=== PATIENT | female | born 1955 | race Caucasian/White ===

== ENCOUNTER → 2024-03-19 | Outpatient (CLI) | payer MEDICARE ==
[2024-03-19 18:55] LABS: Creatinine, Urine Random 79.3 mg/dL (27.00-270.00); Microalb/Creat Ratio UR, Rand 6.784 mg/g (0.000-30.000); Microalbumin, Random Urine 5.38 mg/L (0.000-20.000)
== END ==
LOC: LAB SHORT 15:36 → LAB 15:36
PROVIDERS: Family Medicine
DX: N18.31 Chronic kidney disease, stage 3a (principal)
CPT/HCPCS: 82043; 82570